=== PATIENT | male | born 2000 ===

== ENCOUNTER 2021-07-27 05:42 | Inpatient (IN) | payer MEDICAID ==
[~2021-07-27] VITALS: Ht 175.3 cm; Wt 91.1 kg
[2021-07-27] MEDS ORDERED: MORPHINE SULFATE 4 MG/ML, 1ML ONE (06:26)
[2021-07-27] MEDS ORDERED: SODIUM CHLORIDE 0.9% 1,000ML IVBOLUS ONE (06:30)
[2021-07-27] MEDS ORDERED: MORPHINE SULFATE 4 MG/ML, 1ML IVPush PRN (06:30)
--- NOTE | 2021-07-27 06:31 | NUR ---
TASK RN: PT AMBULATED TO BATHROOM, URINE SAMPLE COLLECTED AND SENT TO LAB. IV FLUIDS STARTED AND INFUSING W/O DIFFICULTY. PT MED FOR PAIN NOTED. VSS, CALL LIGHT W/I REACH.
[2021-07-27 06:46] LABS: MICROSCOPIC INDICATED
[2021-07-27 06:46] LABS: BASOPHILS % (AUTO) 0 % (0-1); EOSINOPHILS % (AUTO) 0 % (1-7); LYMPHOCYTES % (AUTO) 5 % (22-44); MEAN CORPUSCULAR HEMOGLOBIN 28.9 pg (27.5-34.5); MEAN CORPUSCULAR HGB CONC 34.6 g/dL (33.2-36.2); MEAN PLATELET VOLUME 7.1 fL (7.4-10.4); MONOCYTES % (AUTO) 4 % (2-9); NEUTROPHILS % (AUTO) 91 % (42-75); PLATELET COUNT 249 x10^3/uL (130-400); RED BLOOD COUNT 4.96 x10^6/uL (4.38-5.82); RED CELL DISTRIBUTION WIDTH 13.4 % (9.4-14.8)
[2021-07-27 06:58] LABS: ALANINE AMINOTRANSFERASE 33 U/L (12-78); ALBUMIN 3.5 g/dL (3.4-5.0); ANION GAP 10 mmol/L (5-15); CALCIUM 8.9 mg/dL (8.5-10.1); CHLORIDE 101 mmol/L (98-107); CREATININE 1.11 mg/dL (0.7-1.3)
[2021-07-27 07:00] LABS: ALKALINE PHOSPHATASE 61 U/L (45-117); BILIRUBIN,TOTAL 0.9 mg/dL (0.2-1.0); TOTAL PROTEIN 7.6 g/dL (6.4-8.2)
--- NOTE | 2021-07-27 07:02 | NUR ---
REPORT OF PT FROM RAQUEL VILLANEUVA AND ASSUMING CARE OF PT AT THIS TIME. ALL QUESTIONS ANSWERED.
[2021-07-27] MEDS ORDERED: OMNIPAQUE 350 MG/ML, 100ML BOTTLE ONE (07:41)
[2021-07-27] MEDS ORDERED: KETOROLAC 30 MG/1 ML IVPush ONE (08:30)
[2021-07-27] MEDS ORDERED: KETOROLAC 30 MG/1 ML ONE (08:58)
--- NOTE | 2021-07-27 09:02 | NUR ---
RECEIVED REPORT FROM RAQUEL HOLBROOK. PT RESTING ON GURNEY. NADN. VSS. ERP DR. MEAD AT BEDSIDE FOR RE-EVAL. PT PLACED ON RA TO ASSESS O2 SATS ON RA. PT AWARE OF CURRENT POC.
--- NOTE | 2021-07-27 09:05 | NUR ---
REPORT OF PT TO RAQUEL BULLARD. ALL QUESTIONS ANSWERED.
--- NOTE | 2021-07-27 09:19 | NUR ---
ERP DR. MEAD NOTIFIED PT O2 SATS 86% RA
--- NOTE | 2021-07-27 09:20 | NUR ---
PT BP NOTED TO BE 96/39. ERP DR. MEAD NOTIFIED.
[2021-07-27] MEDS ORDERED: DEXAMETHASONE 4 MG/ML, 1ML IM ONE (09:30)
[2021-07-27] MEDS ORDERED: CEFTRIAXONE 1,000 MG in DEXTROSE 5% 50 ML IVPB ONE (09:30)
[2021-07-27] MEDS ORDERED: DEXAMETHASONE 4 MG/ML, 1ML ONE (09:40)
[2021-07-27] MEDS ORDERED: SODIUM CHLORIDE 0.9%, 500ML IVBOLUS ONE (10:00)
[2021-07-27] MEDS ORDERED: AZITHROMYCIN 500 MG in SODIUM CHLORIDE 0.9% 250 ML IV ONE (10:00)
[2021-07-27] MEDS ORDERED: DEXAMETHASONE 4 MG/ML, 1ML IVPush ONE (10:00)
--- NOTE | 2021-07-27 10:55 | NUR ---
PT RESTING ON GURNEY. NADN. WHALEN.
[2021-07-27] MEDS ORDERED: MELATONIN 5 MG TABLET PO PRN (11:30)
[2021-07-27] MEDS ORDERED: ONDANSETRON 2MG/ML, 2ML IVPush PRN (11:30)
[2021-07-27] MEDS ORDERED: POLYETHYLENE GLYCOL 17 GM PACKET PO PRN (11:30)
[2021-07-27] MEDS ORDERED: IBUPROFEN 600 MG TABLET PO PRN (11:30)
[2021-07-27] MEDS ORDERED: ACETAMINOPHEN 325 MG TABLET PO PRN (11:30)
--- NOTE | 2021-07-27 11:41 | NUR ---
PT RESTING ON GURNEY. NADN. WHALEN.
[2021-07-27] MEDS ORDERED: CEFTRIAXONE 1,000 MG IM ONE (12:00)
[2021-07-27] MEDS ORDERED: REMDESIVIR 200 MG in SODIUM CHLORIDE 0.9% 100 ML IVPB ONE (12:00)
[2021-07-27] MEDS ORDERED: POTASSIUM CHLORIDE 20 MEQ TAB.ER.PRT PO ONE (12:00)
[2021-07-27 12:11] LABS: HCT (SEDRATE) 39.5 % (39.2-51.8)
--- NOTE | 2021-07-27 12:14 | NUR ---
REPORT GIVEN TO RAQUEL DAMIAN. ALL QUESTIONS ANSWERED. AWAITING PT TRANSPORT.
[2021-07-27 12:20] LABS: D-DIMER 0.48 ug/mlFEU (0.00-0.52)
[2021-07-27 12:21] LABS: C-REACTIVE PROTEIN, QUANT 8.5 mg/dL (0.02-0.49)
--- NOTE | 2021-07-27 12:37 | NUR ---
PT RESTING ON GURNEY. NADN. WHALEN.
--- NOTE | 2021-07-27 13:36 | NUR ---
PT RESTING ON GURNEY. NADN. WHALEN.
[2021-07-27] MEDS: ENOXAPARIN 40 MG/0.4 ML SQ SCH (16:23)
[2021-07-27] MEDS: SENNA/DOCUSATE TABLET PO SCH (16:23)
[2021-07-27] MEDS: ZINC SULFATE 220 MG CAPSULE PO SCH (16:23)
[2021-07-27 19:44] VITALS: BP 136/66
[2021-07-27] MEDS: ASCORBIC ACID 500 MG TABLET PO SCH (20:00)
[2021-07-27] MEDS: morphine SULFATE 10 MG/ML, 1ML IVPush PRN ×2 (20:00→23:23)
[2021-07-28 00:17] VITALS: BP 129/72
[2021-07-28 03:10] LABS: MICROSCOPIC NOT IND
[2021-07-28 05:57] LABS: ANION GAP 8 mmol/L (5-15); CALCIUM 8.5 mg/dL (8.5-10.1); CHLORIDE 102 mmol/L (98-107); CREATININE 0.96 mg/dL (0.7-1.3)
[2021-07-28 08:44] VITALS: BP 116/65
[2021-07-28] MEDS: SENNA/DOCUSATE TABLET PO SCH (08:47)
[2021-07-28] MEDS: ASCORBIC ACID 500 MG TABLET PO SCH ×2 (08:47→20:36)
[2021-07-28] MEDS: ZINC SULFATE 220 MG CAPSULE PO SCH (08:47)
[2021-07-28] MEDS: AZITHROMYCIN 250 MG TABLET PO SCH (08:47)
[2021-07-28] MEDS: DEXAMETHASONE 4 MG/ML, 1ML IVPush SCH (08:48)
[2021-07-28] MEDS: REMDESIVIR 100 MG in SODIUM CHLORIDE 0.9% 100 ML IVPB SCH (12:48)
[2021-07-28] MEDS: ENOXAPARIN 40 MG/0.4 ML SQ SCH (12:48)
[2021-07-28 15:03] VITALS: BP 117/74
[2021-07-28] MEDS: GUAIFENESIN 200 MG TABLET PO SCH ×2 (16:55→20:36)
[2021-07-28 19:52] VITALS: BP 128/72
[2021-07-29 01:19] VITALS: BP 121/74
[2021-07-29] MEDS: GUAIFENESIN 200 MG TABLET PO SCH ×4 (05:09→20:28)
[2021-07-29 05:37] LABS: CHLORIDE 104 mmol/L (98-107)
[2021-07-29 05:50] LABS: ALANINE AMINOTRANSFERASE 29 U/L (12-78); ALBUMIN 3.1 g/dL (3.4-5.0); ALKALINE PHOSPHATASE 50 U/L (45-117); ANION GAP 4 mmol/L (5-15); BILIRUBIN,TOTAL 0.4 mg/dL (0.2-1.0); CALCIUM 9.2 mg/dL (8.5-10.1); CREATININE 0.85 mg/dL (0.7-1.3)
[2021-07-29] MEDS: DEXAMETHASONE 4 MG/ML, 1ML IVPush SCH (10:16)
[2021-07-29] MEDS: ZINC SULFATE 220 MG CAPSULE PO SCH (10:16)
[2021-07-29] MEDS: AZITHROMYCIN 250 MG TABLET PO SCH (10:16)
[2021-07-29] MEDS: ASCORBIC ACID 500 MG TABLET PO SCH ×2 (10:16→20:28)
[2021-07-29] MEDS: SENNA/DOCUSATE TABLET PO SCH (10:16)
[2021-07-29 10:24] VITALS: BP 130/70
[2021-07-29] MEDS: ALBUTEROL HFA 90 MCG/SPRAY INH PRN ×2 (12:34→17:07)
[2021-07-29] MEDS: ENOXAPARIN 40 MG/0.4 ML SQ SCH (12:37)
[2021-07-29] MEDS: REMDESIVIR 100 MG in SODIUM CHLORIDE 0.9% 100 ML IVPB SCH (13:06)
[2021-07-29 15:35] VITALS: BP 132/78
[2021-07-29 23:50] VITALS: BP 102/54
[2021-07-30 02:01] VITALS: BP 112/69
[2021-07-30] MEDS: GUAIFENESIN 200 MG TABLET PO SCH (06:00)
[2021-07-30 08:52] LABS: ALANINE AMINOTRANSFERASE 34 U/L (12-78); ALBUMIN 3.3 g/dL (3.4-5.0); ANION GAP 5 mmol/L (5-15); CALCIUM 9.1 mg/dL (8.5-10.1); CHLORIDE 107 mmol/L (98-107); CREATININE 0.96 mg/dL (0.7-1.3)
[2021-07-30 08:54] LABS: ALKALINE PHOSPHATASE 52 U/L (45-117); BILIRUBIN,TOTAL 0.3 mg/dL (0.2-1.0); TOTAL PROTEIN 7.4 g/dL (6.4-8.2)
[2021-07-30] MEDS: ASCORBIC ACID 500 MG TABLET PO SCH (09:00)
[2021-07-30] MEDS: SENNA/DOCUSATE TABLET PO SCH (09:00)
[2021-07-30] MEDS: AZITHROMYCIN 250 MG TABLET PO SCH (09:00)
[2021-07-30] MEDS: ZINC SULFATE 220 MG CAPSULE PO SCH (09:00)
[2021-07-30] MEDS: DEXAMETHASONE 4 MG/ML, 1ML IVPush SCH (09:00)
[2021-07-30 09:44] VITALS: BP 113/69
[2021-07-30] MEDS: REMDESIVIR 100 MG in SODIUM CHLORIDE 0.9% 100 ML IVPB SCH (13:03)
[2021-07-30] MEDS: ENOXAPARIN 40 MG/0.4 ML SQ SCH (13:03)
[2021-07-30 13:04] VITALS: BP 129/69
[2021-07-30] MEDS ORDERED: GUAI200T37 PO (14:57)
[2021-07-30] MEDS ORDERED: ALBU18HF INH (14:57)
[2021-07-30] MEDS ORDERED: GUAIFENESIN 200 MG TABLET PO SCH (16:00)
[2021-07-30] MEDS ORDERED: GUAIFENESIN 100 MG/5 ML, 10ML UDC PO SCH (16:00)
[2021-07-30] MEDS ORDERED: GUAIFENESIN 100 MG/5 ML, 10ML UDC ONE (17:58)
== END 2021-07-30 18:30 | disposition home or self-care (01) | DRG 871 ==
LOC: ED 06:56 → EDIP 09:45 → SUATTDRO 10:37 → 3N 14:09
PROVIDERS: ADMIT Internal Medicine; ATTEND Hospitalist
PROC: XW033E5 Introduction of Remdesivir Anti-infective into Peripheral Vein, Percutaneous Approach, New Technology Group 5 (ICD-10-PCS; principal; 2021-07-27)
DX: A41.9 Sepsis, unspecified organism (principal); J12.82 Pneumonia due to coronavirus disease 2019; J96.01 Acute respiratory failure with hypoxia; U07.1 COVID-19; K56.7 Ileus, unspecified; E87.6 Hypokalemia; N45.1 Epididymitis
CPT/HCPCS: 36415; 71045; 74177; 80048; 80053; 81001; 81003; 82728; 83605; 84145; 85025; 85379; 85384; 85651; 86140; 87040; 87491; 87591; 93005; 96361; 96365; 96375; 99285; G0378; J0456; J0696; J1100; J1650; J1885; Q9967; J2270; J7030; J7040; J7050